=== PATIENT | male | born 1945 | race Caucasian/White ===

== ENCOUNTER → 2021-03-05 13:09 | Outpatient (CLI) | payer MEDICARE, SELFPAY ==
--- NOTE | ~2021-03-05 | US_ITS ---
US breast RT limited INDICATION: Palpable right breast lump with pain TECHNIQUE: Dedicated right breast ultrasound COMPARISON: No prior studies for comparison. FINDINGS: The right breast is composed of normal heterogeneous echotexture without focal solid or cys tic mass. There is subareolar heterogeneous soft tissue, consistent with gynecomastia. IMPRESSION: 1: No sonographic evidence for malignancy. Gynecomastia. BI-RADS CATEGORY 2 - BENIGN FINDINGS Reviewed, dictated and finalized at location A.
== END ==
PROVIDERS: PCP Family Medicine; Visit Provider Nurse Practitioner Family
DX: N63.0 Unspecified lump in unspecified breast (principal); N64.4 Mastodynia; N62 Hypertrophy of breast
CPT/HCPCS: 76642

== ENCOUNTER 2022-06-29 07:23 | Day surgery (SDC) | payer MEDICARE, SELFPAY ==
[2022-06-20 13:54] VITALS: BMI 22.8
[2022-06-29 07:55] VITALS: BP 159/80; PULSE 68; RESP 20; TEMP 36.9; O2SAT 99
[2022-06-29] MEDS: TETRACAINE HCL 0.5% OPHTH SOLN 4 ML BTL 1 DROP AFFCTD EYE ×3 (08:15→08:25)
[2022-06-29] MEDS: OFLOXACIN 0.3% OPHTH SOLN 5 ML BTL 1 DROP AFFCTD EYE (08:15)
--- NOTE | 2022-06-29 08:28 | WPDANESEPPF ---
Anes - Initial Pre Proc Eval Procedure: Operation Date: 06/29/22 09:00 Proposed Procedures p Cataract Extraction with Lens Implant-Left Eye - Fausto Moyer MD Date/Time: 06/29/22 08:28 Surgeon: Fausto Moyer MD Pre Op Diagnosis: Cataract Left Eye Patient Data Age: 76 Gender: M Height: 1.7 m Weight: 67.5 kg Last Vital Signs Temp 36.9 C 06/29/22 07:55 Pulse 68 06/29/22 07:55 Resp 20 06/29/22 07:55 BP 159/80 H 06/29/22 07:55 Pulse Ox 99 06/29/22 07:55 O2 Del Method Room Air 06/29/22 07:55 Allergies Allergy/AdvReac Type Severity Reaction Status Date / Time zolpidem Allergy Unknown Rash Verified 06/29/22 08:12 Home Medications Medication Instructions Recorded Confirmed Type doxycycline hyclate 50 mg tablet 50 mg PO DAILY 10/20/21 06/29/22 History terazosin 2 mg capsule 4 mg PO QHS #60 caps 02/28/22 06/29/22 Rx clonazepam 1 mg tablet 1 mg PO BID PRN Anxiety #60 tabs 04/21/22 06/29/22 Rx escitalopram oxalate 20 mg tablet 20 mg PO . q.a.m. #30 tabs 04/28/22 06/29/22 Rx (Lexapro) metronidazole 0.75 % topical gel 1 applic topical BID 04/28/22 06/29/22 History cyanocobalamin (vitamin B-12) 1,000 mcg PO DAILY 05/23/22 06/29/22 History 1,000 mcg tablet Patient hx anesthesia problems: none Family hx anesthesia problems: none Results Review: All pre-operative results and documents have been reviewed as part of the pre-operative evaluation. [facility] Past Medical History Medical History Allergic conjunctivitis Anemia (10/25/21) hemoglobin 11.9, decreased from 13.5 with vitamin B12 462 and folic acid 16.8 on 10/25/2021. hemoglobin 13.1, iron 90, 30% saturation, ferritin 80, vitamin B12 353 and folic acid 15.8 on 04/28/2022. Aortic stenosis BMI 23.0-23.9, adult Breast lump Cataract Dizziness pppd Edema, peripheral GERD (gastroesophageal reflux disease) Gynecomastia, male (03/05/21) gynecomastia on ultrasound of the right breast on 03/05/2021. Irritable bladder Leukocytopenia (10/30/20) WBC slightly low at 3.5 on 10/30/2020. WBC normal at 4.0 on 04/28/2022. Nail fungus Neoplasm of skin of face Nipple tenderness Overactive bladder Right inguinal hernia Rosacea blepharoconjunctivitis (~03/2021) Vitamin B12 deficiency (04/28/22) Level slightly low at 353 with goal greater than 400 with hemoglobin 13.1 on 04/28/2022. Family History Family History Mother Family history of mental disorder, Onset Age: 75 Family history of congestive heart failure, Onset Age: 75 Breast cancer Sibling Patient's sister is in good health Family history of cardiovascular disease Heart disease Breast cancer Grandparent Acute myocardial infarction Carcinoma of colon, Onset Age: 94 Father Family history of chronic obstructive pulmonary disease, Onset Age: 77 Social History Social History Smoking packs per day: 1.5 Smoking cigarettes per day: 30.0 Years smoked: 15 Smoking pack-years: 22.50 Smoking status: Former smoker Tobacco type: cigarettes Smokeless tobacco user: chewing tobacco Second hand tobacco smoke exposure: No Smoking end date: 07/31/06 Alcohol intake: current Drinks per week: 10 Alcohol use details: SEVERAL DRINKS PER WEEK Substance use: never Substance use type: does not use Living arrangements: alone Gender identity (if verbalized by the patient): Male Spiritual care concerns: No Anes - Eval Final PreProcedure Day of Procedure 06/29/22 08:28 Patient weight: normal Heart: regular rate and rhythm and murmur Lungs: decreased breath sounds Airway: Mallampati scale class II Neurological: alert and oriented Last oral intake: >/= 8 hours ASA classification: III Emergent: no Anesthetic plan: proceed Anesthesia type and
[2022-06-29] MEDS: LIDOCAINE HCL 2% JELLY 5 ML TUBE 1 APPLIC AFFCTD EYE (09:00)
--- NOTE | 2022-06-29 09:02 | WPDHPUPDATE1 ---
History and Physical Update Update Date/Time: 06/29/22 09:02 History and Physical has been reviewed, including an updated exam of the patient. There are NO changes in the patient's condition. Risks, benefits, and alternatives have been discussed and questions answered. Patient agrees to proceed with procedure.
[2022-06-29] MEDS: LIDOCAINE HCL 1% PF INJ 5 ML VIAL 1 ML INTRAOCULA (09:03)
[2022-06-29] MEDS: HOME MEDICATION 1 EACH AFFCTD EYE (09:30)
[2022-06-29] MEDS: NEOMYCIN/POLYMYXIN/DEXAMETH OP OINT 3.5 GM TUBE 1 APPLIC AFFCTD EYE (09:31)
[2022-06-29 09:33] VITALS: BP 149/64; PULSE 55; RESP 20; O2SAT 100
[2022-06-29] MEDS: acetaZOLAMIDE TAB 250 MG TABLET PO (09:38)
--- NOTE | 2022-06-29 09:53 | WPDANESPN ---
Anes - Prog Note Post-Op Date/Time: 06/29/22 09:53 Cardiovascular status: normal Respiratory status: normal Airway patency: baseline Mental status: baseline Post-Op hydration status: normal Vital Signs: Last Vital Signs Temp 36.9 C 06/29/22 07:55 Pulse 68 06/29/22 07:55 Resp 20 06/29/22 07:55 BP 159/80 H 06/29/22 07:55 Pulse Ox 99 06/29/22 07:55 O2 Del Method Room Air 06/29/22 07:55 Pain Score (VAS): 0 Patient Feedback: Patient satisfied with anesthetic care.
--- NOTE | 2022-06-29 11:51 | W.PM.PROC2 ---
Procedure Note - Detailed Date of Procedure 06/29/22 Pre-op Diagnosis Cataract Left Eye Post-op Diagnosis Same Procedure Performed Cataract Extraction (by Phacoemulsification) and lntraocular Lens Implant Surgeon Fausto Moyer MD Anesthesia MAC Description of Procedure The eye was anesthetized with topical 0.75% bupivacaine. After intravenous sedation and placement of monitors, the patient was prepped and draped in the usual sterile manner. A lid speculum was placed. A paracentesis was made, and preservative free 1% lidocaine was instilled in the anterior chamber. The anterior chamber was then filled with Viscoat viscoelastic. A shravan keratome was used to create the wound. Continuous tear anterior capsulotomy was performed. The lens was hydro dissected before being removed with phacoemulsification. The remaining lenticular cortex was removed with aspiration. The capsular bag was polished and filled with viscoelastic material. An intraocular lens was chosen, inspected, irrigated and placed within the capsular bag where it was seen to be centered and stable. The viscoelastic material was aspirated. The wound was closed and found to be watertight. Ciloxan drops were placed in the eye. The speculum was removed. A Mojica shield was applied. The patient tolerated the procedure well and left the operating room in satisfactory condition. Implants See chart Complications None Condition Stable Disposition Same day
== END 2022-06-29 10:09 | disposition home or self-care (01) ==
PROVIDERS: PCP Family Medicine; Visit Provider Student in an Organized Health Care Education/Training Program
PROC: (CPT 66983; principal; 2022-06-29 09:00)
DX: H25.12 Age-related nuclear cataract, left eye (principal)
CPT/HCPCS: 66984; JTORIC